=== PATIENT | male | born 1945 | race Caucasian/White ===

== ENCOUNTER 2018-01-23 08:12 | Emergency (ER) | payer OTHER ==
[~2018-01-23] VITALS: Ht 185.4 cm; Wt 90.9 kg
[2018-01-23 08:25] VITALS: Ht 185.4 cm; Wt 90.9 kg
[2018-01-23] MEDS ORDERED: GLIPIZIDE10 MG PO (08:28)
[2018-01-23] MEDS ORDERED: GLUCOPHAGE1000 MG PO (08:28)
[2018-01-23] MEDS ORDERED: ZANTAC300 MG PO (08:29)
[2018-01-23 09:08] LABS: BASOPHILS 0.5 % (0-2); EOSINOPHILS 1.1 % (0-7); HEMOGLOBIN 15.8 g/dL (13.5-17.5); IMMATURE GRANULOCYTES 0.2 % (0-5); MCH 29.4 pg (26.0-34.0); MCHC 33.6 g/dL (31.0-37.0); MCV 87.5 fL (80.0-100.0); MEAN PLATELET VOLUME 10.5 fL (7.4-10.4); MONOCYTES 5.8 % (2-11); NEUTROPHILS 82.4 % (40-80); PLATELET COUNT 218 10x3/uL (130-400); RBC 5.37 10x6/uL (4.20-6.10); RDW 14.6 % (11.5-14.5); WBC 11.6 10x3/uL (4.8-10.8)
[2018-01-23 09:09] LABS: APPEARANCE CLEAR (CLEAR); BILIRUBIN NEGATIVE (NEGATIVE); COLOR YELLOW (YELLOW); EPITHELIAL CELLS OCC /hpf (0-5); GLUCOSE 500 mg/dL (NEGATIVE); KETONE MODERATE mg/dL (NEGATIVE); NITRITE NEGATIVE (NEGATIVE); PROTEIN 1+ mg/dL (NEGATIVE); SPECIFIC GRAVITY 1.025 (1.005-1.020); UROBILINOGEN NORMAL (NORMAL); WHITE CELLS - URINE NSEEN /hpf (0-5)
[2018-01-23 09:10] LABS: BACTERIA FEW /hpf (NONE SEEN); MUCUS NONE SEEN /lpf (NONE SEEN); YEAST NONE SEEN /hpf (NONE SEEN)
[2018-01-23 09:29] LABS: ALBUMIN 3.9 g/dL (3.4-5.0); ANION GAP 14.8 mmol/L (8-16); BILIRUBIN - TOTAL 0.83 mg/dL (0.2-1.3); CALCIUM 8.8 mg/dL (8.5-10.1); CARBON DIOXIDE 27.2 mmol/L (21.0-32.0); CREATININE - SERUM 1.4 mg/dL (0.6-1.3); MAGNESIUM - SERUM 1.8 mg/dL (1.8-2.4); PROTEIN - SERUM 7.4 g/dL (6.4-8.2)
[2018-01-23] MEDS ORDERED: DILAUDID4 MG PO (10:34)
[2018-01-23 11:22] VITALS: BP 145/74
== END 2018-01-23 11:23 | disposition home or self-care (01) ==
LOC: D.ER 08:12
PROVIDERS: Emergency Medicine
DX: D64.9 Anemia, unspecified (principal); M89.9 Disorder of bone, unspecified; E11.9 Type 2 diabetes mellitus without complications; K21.9 Gastro-esophageal reflux disease without esophagitis